=== PATIENT | male | born 1990 | race Caucasian/White ===

== ENCOUNTER 2019-08-07 06:52 | Outpatient (CLI) | payer OTHER ==
[~2019-08-07 06:52] MED LIST: ZYRTEC10 MG PO
== END 2019-08-07 15:00 | disposition home or self-care (01) ==
LOC: LAB 06:52
DX: I10 Essential (primary) hypertension (principal)

== ENCOUNTER → 2019-12-03 | Emergency (ER) | payer OTHER ==
[~2019-12-03] VITALS: Ht 185.4 cm; Wt 139.3 kg
[~2019-12-03] MED LIST changes: +LOSARTAN-HCTZ1 EAC2 PO
== END | disposition home or self-care (01) ==
LOC: ER 09:09
DX: R51 Headache (principal); F06.4 Anxiety disorder due to known physiological condition

== ENCOUNTER 2019-12-05 09:37 | Outpatient (CLI) | payer OTHER | END 2019-12-05 10:55 | disposition home or self-care (01) | LOC: SONOGRAMA 09:37 | DX: R10.84 Generalized abdominal pain (principal) ==

== ENCOUNTER → 2020-01-16 06:55 | Outpatient (CLI) | payer OTHER | END | disposition home or self-care (01) | LOC: LAB 06:55 | DX: E11.9 Type 2 diabetes mellitus without complications (principal); E03.8 Other specified hypothyroidism; E78.2 Mixed hyperlipidemia; I25.10 Atherosclerotic heart disease of native coronary artery without angina pectoris; R07.89 Other chest pain ==

== ENCOUNTER 2020-07-03 07:27 | Outpatient (CLI) | payer OTHER | END 2020-07-03 07:38 | disposition home or self-care (01) | LOC: NUCLEAR 07:27 | PROVIDERS: ATTEND Internal Medicine Cardiovascular Disease | DX: R07.89 Other chest pain (principal); I10 Essential (primary) hypertension ==

== ENCOUNTER → 2020-07-28 08:00 | Outpatient (CLI) | payer OTHER | END | disposition home or self-care (01) | LOC: PPH VACUNA 08:00 | DX: Z23 Encounter for immunization (principal) ==

== ENCOUNTER 2020-10-27 16:31 | Outpatient (CLI) | payer OTHER | END 2020-10-27 18:00 | disposition home or self-care (01) | LOC: PPH VACUNA 16:31 | DX: Z23 Encounter for immunization (principal) ==